=== PATIENT | female | born 1995 | race African-American/Black ===

== ENCOUNTER 2020-08-01 14:42 | Emergency (ER) | payer MEDICARE ==
[~2020-08-01] VITALS: Ht 127 cm; Wt 65.8 kg
== END 2020-08-01 15:28 | disposition home or self-care (01) ==
LOC: ER 15:28
DX: B37.9 Candidiasis, unspecified (principal); E11.9 Type 2 diabetes mellitus without complications; Q05.9 Spina bifida, unspecified
CPT/HCPCS: 99282

== ENCOUNTER 2020-10-02 14:06 | Emergency (ER) | payer MEDICARE, OTHER ==
[~2020-10-02] VITALS: Ht 127 cm; Wt 65.8 kg
[2020-10-02] MEDS ORDERED: METFORMIN HCL500 M2 PO (15:33)
[2020-10-02] MEDS ORDERED: LANTUS 3ML100 UNITS/ SQ (15:33)
[2020-10-02] MEDS ORDERED: IBUPROFEN 600 MG TAB PO STA (16:14)
[2020-10-02 16:18] LABS: CLARITY,URINE CLOUDY (CLEAR); COLOR,URINE YELLOW (YELLOW)
[2020-10-02 16:19] LABS: BILIRUBIN,URINE NEGATIVE (NEGATIVE); KETONES,URINE TRACE (NEGATIVE); LEUKOCYTE ESTERASE ,URINE NEGATIVE (NEGATIVE); NITRITE,URINE NEGATIVE (NEGATIVE); PROTEIN,URINE DIPSTICK 1+ (NEGATIVE); URINE UROBILINOGEN 0.2 mg/dL (0.2 - 1)
[2020-10-02 16:34] LABS: BACTERIA,URINE FEW /HPF; EPITHELIAL CELLS,URINE FEW /LPF; RBC,URINE 21-50 /HPF (0-5); WBC,URINE (MAN) 0-5 /HPF (0-5)
[2020-10-02 16:35] LABS: AMORPHOUS SEDIMENT,URINE MANY (FEW)
== END 2020-10-02 18:27 | disposition home or self-care (01) ==
LOC: ER 15:44
DX: N39.0 Urinary tract infection, site not specified (principal); R30.0 Dysuria; K59.00 Constipation, unspecified; E11.9 Type 2 diabetes mellitus without complications; Q05.9 Spina bifida, unspecified; Z99.3 Dependence on wheelchair
CPT/HCPCS: 74018; 81001; 99282